=== PATIENT | female | born 1955 | race Hispanic/Latino ===

== ENCOUNTER 2023-10-26 14:11 | Emergency (ER) | payer OTHER | END 2023-10-26 16:10 | disposition home or self-care (01) | LOC: CSHERS 14:11 | DX: M72.2 Plantar fascial fibromatosis (principal); I10 Essential (primary) hypertension; E10.9 Type 1 diabetes mellitus without complications ==

== ENCOUNTER 2025-10-02 08:33 | Outpatient (CLI) | payer OTHER | END 2025-10-02 08:34 | disposition home or self-care (01) | LOC: CSHMAMMO 08:33 | PROVIDERS: ATTEND Nurse Practitioner Primary Care | DX: Z12.31 Encounter for screening mammogram for malignant neoplasm of breast (principal) | CPT/HCPCS: 77063; 77067 ==